=== PATIENT | male | born 1995 | race Caucasian/White ===

== ENCOUNTER 2017-04-26 01:34 | Emergency (ER) | payer OTHER ==
[~2017-04-26] VITALS: Ht 180.3 cm; Wt 63.1 kg
[2017-04-26 03:39] VITALS: BP 119/82
== END 2017-04-26 03:40 | disposition home or self-care (01) ==
LOC: EME 01:34 → EXP 01:34
DX: S00.81XA Abrasion of other part of head, initial encounter (principal); V48.1XXA Car passenger injured in noncollision transport accident in nontraffic accident, initial encounter; F17.200 Nicotine dependence, unspecified, uncomplicated
CPT/HCPCS: 70450; 72125